=== PATIENT | male | born 1995 | race Caucasian/White ===

== ENCOUNTER 2017-02-27 18:23 | Emergency (ER) | payer SELFPAY ==
[2017-02-27 18:44] VITALS: BP 122/74; PULSE 71; TEMP 98.5; BMI 20.2
[2017-02-27] MEDS ORDERED: ACETAMINOPHEN 500 MG TABLET (FP) PO ONE (19:25)
[2017-02-27] MEDS ORDERED: ONDANSETRON *ODT* 4 MG TABLET SL ONE (19:26)
[2017-02-27] MEDS ORDERED: ACETAMINOPHEN 500 MG TABLET (FP) ONE (19:28)
[2017-02-27] MEDS ORDERED: ONDANSETRON *ODT* 4 MG TABLET ONE (19:29)
--- NOTE | 2017-02-27 19:31 | PDOC ---
History of Present Illness - General Chief Complaint: Headache Stated Complaint: HEADACHE/VOMITING Time Seen by Provider: 02/27/17 18:44 History Source: Patient Exam Limitations: No Limitations - History of Present Illness Initial Comments: 02/27/17 19:34 Chief complaint: Headache, multiple episodes of vomiting and sore throat today History of present illness: Patient is a 21-year-old male with no significant medical history here today complaining of a generalized headache, sore throat, nausea and multiple episodes of vomiting that started today. Patient denies any recent sick contacts. Patient is up-to-date with immunizations except for influenza vaccine. Patient has had no recent travel. Patient has not vomited since 4 PM today. Patient denies any diarrhea any difficulty breathing, cough, nasal congestion or any other symptoms. Timing/Duration: intermittent (today ) Severity: moderate Associated Symptoms: reports: headaches, nausea/vomiting (multiple times today and sore throat), other Past History - Past Medical History Allergies/Adverse Reactions: Allergies Allergy/AdvReac Type Severity Reaction Status Date / Time No Known Allergies Allergy Verified 02/27/17 18:35 Home Medications: Ambulatory Orders Ondansetron HCl [Zofran] 4 mg PO Q8H PRN #3 tablet MDD 3 02/27/17 Penicillin V Potassium [Pen Vee K -] 500 mg PO TID #30 tablet 02/27/17 COPD: No - Suicide/Smoking/Psychosocial Hx Smoking History: Never smoked Have you smoked in the past 12 months: No Information on smoking cessation initiated: No Hx Alcohol Use: No Drug/Substance Use Hx: No Substance Use Type: None Review of Systems - Review of Systems Able to Perform ROS?: Yes Constitutional: Yes: Loss of Appetite HEENTM: Yes: Throat Pain Respiratory: No: Symptoms reported Cardiac (ROS): No: Symptoms Reported ABD/GI: Yes: Nausea, Vomiting (multiple times today ) : No: Symptoms Reported Musculoskeletal: No: Symptoms Reported Integumentary: No: Symptoms Reported Neurological: Yes: Headache (generalized) *Physical Exam - Vital Signs Last Vital Signs Temp Pulse Resp BP Pulse Ox 98.5 F 71 18 122/74 100 02/27/17 18:35 02/27/17 18:35 02/27/17 18:35 02/27/17 18:35 02/27/17 18:35 - Physical Exam General Appearance: Yes: Appropriately Dressed HEENT: positive: EOMI, SAHRA, TMs Normal, Pharyngeal Erythema, Tonsillar Erythema (with no uvular deviation ). negative: Tonsillar Exudate Neck: positive: Lymphadenopathy (R), Lymphadenopathy (L) Respiratory/Chest: positive: Lungs Clear, Normal Breath Sounds. negative: Chest Tender, Respiratory Distress Cardiovascular: positive: Regular Rhythm, Regular Rate, S1, S2 Gastrointestinal/Abdominal: positive: Normal Bowel Sounds, Soft. negative: Tender, Organomegaly, Distended, Guarding, Rebound, Tenderness, Hepatomegaly, Spleenomegaly Integumentary: positive: Normal Color Neurologic: positive: patient service specialist II-XII NML intact, Fully Oriented, Alert, Normal Response, Respond to painful stimul, Responsive. negative: Numbness, Sensory Deficit Medical Decision Making - Medical Decision Making 02/27/17 19:35 Patient is a 21-year-old male with no significant medical history here today complaining of a generalized headache, sore throat, nausea and multiple episodes of vomiting that started today. Patient denies any recent sick contacts. Patient is up-to-date with immunizations except for influenza vaccine. Patient has had no recent travel. Patient has not vomited since 4 PM today. Patient denies any diarrhea any difficulty breathing, cough, nasal congestion or any other symptoms. Pharyngitis/tonsillitis rule out strep Nausea, vomiting Plan: throat C & S rapid positive for group A beta hemolytic strep acetaminophen 1000 mg po now zofran 4 mg sl now than 1 tab q 8 hr prn vomiting nausea # 3 tabs pen vk 500 mg tid for 10 days 02/27/17 19:56 02/27/17 20:13 03/01/17 19:44 03/01/17 19:44 *DC/Admit/Observation/Transfer Diagnosis at time of Disposition: Acute streptococcal tonsillitis Qualifiers: Streptococcal tonsillitis recurrence: non-recurrent Qualified Code(s): J03.00 - Acute streptococcal tonsillitis, unspecified Headache Qualifiers: Headache type: unspecified Headache chronicity pattern: unspecified pattern Intractability: not intractable Qualified Code(s): R51 - Headache - Discharge Dispostion Disposition: HOME Condition at time of disposition: Stable - Prescriptions Prescriptions: Penicillin V Potassium [Pen Vee K -] 500 mg PO TID #30 tablet Ondansetron HCl [Zofran] 4 mg PO Q8H PRN #3 tablet MDD 3 PRN Reason: Nausea And/Or Vomiting - Patient Instructions Additional Instructions: fluids and foods as tolerated take acetaminophen as needed as directed by able bodied seaman Follow-up with your primary care provider within the next couple of days at [facility] at [phone] Return to emergency room if symptoms or any new symptoms develop Patient voiced understanding of discharge instructions and all questions were answered and thank you for choosing [facility] emergency room for your medical care today fluidos y alimentos segn la tolerancia pravin acetaminofn segn sea necesario segn las indicaciones del fabricante [place] un seguimiento con mohan proveedor de atencin primaria dentro de los pr ximos argueta en el [facility] al [phone] Regrese a la augustine de emergencias si se desarrollan sntomas o cualquier sntoma nuevo El paciente expres comprensin de las instrucciones de tri y todas las preguntas fueron respondidas
== END 2017-02-27 20:33 | disposition home or self-care (01) ==
LOC: JER 18:23 → JERFT 18:23
DX: J02.0 Streptococcal pharyngitis (principal); R51 Headache; B95.0 Streptococcus, group A, as the cause of diseases classified elsewhere
CPT/HCPCS: 87070; 87430; 99281-25